=== PATIENT | female | born 1960 | race African-American/Black ===

== ENCOUNTER 2018-06-04 08:24 | Emergency (ER) | payer MEDICAID, OTHER ==
[~2018-06-04] VITALS: Ht 175.3 cm; Wt 76.2 kg
[2018-06-04 08:45] VITALS: BP 110/71
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
--- NOTE | 2018-06-04 10:04 | Diagnostic Imaging Report ---
EXAM: XR Lumbar Spine, 2 or 3 Views CLINICAL HISTORY: PAIN TECHNIQUE: Frontal and lateral views of the lumbar spine. COMPARISON: No relevant prior studies available. FINDINGS: Vertebrae: Left convex lumbar scoliotic curvature centered at L2, with a Brand angle of 20. 5 [id number] lumbar vertebral segments. Lumbar vertebral body heights are maintained without evidence of fracture. Disc spaces: Mild multilevel degenerative changes throughout the lumbar spine, with mild disc space loss, endplate osteophytes, and facet arthrosis. Soft tissues: Unremarkable. IMPRESSION: 1. Left convex lumbar scoliotic curvature centered at L2, with a Brand angle of 20. 2. Mild multilevel degenerative changes throughout the lumbar spine.
[2018-06-04] MEDS ORDERED: CYCLOBENZAPRINE10 MG ORAL (10:14)
[2018-06-04] MEDS ORDERED: VOLTAREN100 G1 TP (10:14)
[2018-06-04 10:20] VITALS: BP 109/74
--- NOTE | 2018-06-04 10:20 | NUR ---
ED Nurse Note: Pt was cleared to be discharged from [facility]. Pt received discharge instuction and prescription with fully understanding. Pt ambulated to be discharged. ID band was removed.
== END 2018-06-04 10:20 | disposition home or self-care (01) ==
LOC: EMR 09:04
DX: S39.012A Strain of muscle, fascia and tendon of lower back, initial encounter (principal); S16.1XXA Strain of muscle, fascia and tendon at neck level, initial encounter; V43.52XA Car driver injured in collision with other type car in traffic accident, initial encounter; Y92.410 Unspecified street and highway as the place of occurrence of the external cause; I10 Essential (primary) hypertension; Z88.5 Allergy status to narcotic agent
CPT/HCPCS: 72020; 99283